=== PATIENT | female | born 1945 | race Two or more races ===

== ENCOUNTER 2020-09-30 08:03 | Outpatient (CLI) | payer OTHER | END 2020-09-30 08:05 | disposition home or self-care (01) | LOC: NUCLEAR 08:03 | PROVIDERS: ATTEND Internal Medicine | DX: I20.8 Other forms of angina pectoris (principal); R00.2 Palpitations; R07.89 Other chest pain; J44.9 Chronic obstructive pulmonary disease, unspecified; F17.200 Nicotine dependence, unspecified, uncomplicated; I10 Essential (primary) hypertension; I45.19 Other right bundle-branch block | CPT/HCPCS: 78452; 93017; A9500; J1250 ==

== ENCOUNTER 2023-01-23 09:04 | Outpatient (CLI) | payer OTHER | END 2023-01-23 09:08 | disposition home or self-care (01) | LOC: LAB 09:04 | DX: I22.8 Subsequent ST elevation (STEMI) myocardial infarction of other sites (principal) ==

== ENCOUNTER 2023-02-01 08:58 | Outpatient (CLI) | payer OTHER | END 2023-02-01 09:08 | disposition home or self-care (01) | LOC: RX STUDY 08:58 | PROVIDERS: ATTEND Surgery | DX: I27.82 Chronic pulmonary embolism (principal); R09.82 Postnasal drip; R49.0 Dysphonia; R13.10 Dysphagia, unspecified | CPT/HCPCS: 71260; 74230; Q9965 ==